=== PATIENT | female | born 1980 | race African-American/Black ===

== ENCOUNTER 2017-12-16 09:18 | Emergency (ER) | payer MEDICAID ==
[~2017-12-16] VITALS: Ht 167.6 cm; Wt 85.0 kg
[~2017-12-16 09:18] MED LIST: BACTRIM; IBUP-1008
[2017-12-16] MEDS ORDERED: CYCLOBENZAPRINE 10MG TABLET PO ONE (10:45)
[2017-12-16] MEDS ORDERED: KETOROLAC 60MG/2ML VIAL IM ONE (10:45)
[2017-12-16] MEDS ORDERED: LIDOCAINE HCL 1% 20ML VIAL (Pyxis) INJ INFIL ONE (11:15)
[2017-12-16 11:25] VITALS: BP 126/84
[2017-12-16] MEDS: LIDOCAINE HCL 1% 10 MG/ML 10ML VIAL INJ SCH ×2 (11:25→11:45)
== END 2017-12-16 11:54 | disposition home or self-care (01) ==
LOC: ER 09:23
DX: M54.16 Radiculopathy, lumbar region (principal)
CPT/HCPCS: 96372; 99283; J1885; J3490

== ENCOUNTER 2019-03-30 09:36 | Emergency (ER) | payer MEDICAID ==
[~2019-03-30] VITALS: Ht 175.3 cm; Wt 109.0 kg
[2019-03-30 10:06] VITALS: BP 137/83
[2019-03-30] MEDS ORDERED: HYDROCODONE/ACETAMINOPHEN 5/325MG TABLET PO ONE (10:15)
[2019-03-30] MEDS ORDERED: KETOROLAC 60MG/2ML VIAL IM ONE (10:15)
== END 2019-03-30 12:38 | disposition home or self-care (01) ==
LOC: ER 09:36
DX: M54.41 Lumbago with sciatica, right side (principal); R03.0 Elevated blood-pressure reading, without diagnosis of hypertension; F17.210 Nicotine dependence, cigarettes, uncomplicated
CPT/HCPCS: 81025; 99283; J1885

== ENCOUNTER 2019-03-31 01:24 | Emergency (ER) | payer MEDICAID ==
[~2019-03-31] VITALS: Ht 175.3 cm; Wt 113.0 kg
[2019-03-31] MEDS ORDERED: KETOROLAC 60MG/2ML VIAL IM ONE (04:15)
[2019-03-31 05:03] VITALS: BP 142/72
== END 2019-03-31 05:03 | disposition home or self-care (01) ==
LOC: ER 01:24
DX: M54.16 Radiculopathy, lumbar region (principal); J06.9 Acute upper respiratory infection, unspecified; F17.200 Nicotine dependence, unspecified, uncomplicated
CPT/HCPCS: 96372; 99283; J1885; Z7610